=== PATIENT | female | born 1990 | race Two or more races ===

== ENCOUNTER 2023-12-21 05:09 | Inpatient (IN) | payer OTHER ==
[~2023-12-21] VITALS: Ht 165.1 cm; Wt 65.8 kg
[~2023-12-21 05:09] MED LIST: PRENATAL TABLE1 EAC1 PO
[2023-12-21] MEDS ORDERED: PROMETHAZINE HCL 50 MG/ML AMPUL IM STA (05:34)
[2023-12-21] MEDS ORDERED: FAMOTIDINE/PF 20 MG/2 ML VIAL IV PUSH STA (05:34)
[2023-12-21] MEDS ORDERED: 0.9 % SODIUM CHLORIDE 1,000 ML IV STA (05:39)
[2023-12-21 06:24] LABS: HEMATOCRIT 38.9 % (36.0-45.00); HEMOGLOBIN 13.4 g/dL (12.0-15.00); MEAN CELL VOLUME 87.3 fL (80.00-100.00); MEAN CORPUSCULAR HGB CONC 34.3 g/dl (32.0-36.0); PLATELET COUNT 187 K/uL (150-450); RED BLOOD COUNT 4.46 M/uL (4.00-6.00); RED CELL DISTRIBUTION WIDTH 13.5 % (11.5-14.5)
[2023-12-21 06:33] LABS: PH,URINE 5.5 (5.0-8.0); URINE APPEARANCE Clear; URINE BILIRRUBIN Negative (NEGATIVE); URINE BLOOD Negative; URINE COLOR Yellow; URINE GLUCOSE Negative (NEGATIVE); URINE LEUKOCYTE Negative; URINE NITRATE Negative; URINE PROTEIN Trace (NEGATIVE)
[2023-12-21 06:37] LABS: URINE BACTERIA 22.6 uL (0.0-1933); URINE EPITHELIAL CELLS 5.2 uL (0.0-38.8); URINE WBC 8.6 uL (0.0-23.2)
[2023-12-21 07:01] LABS: ALBUMIN 4.2 gm/dL (3.4-5.0); ALKALINE PHOSPHATASE 93 U/L (50-136); ALT/SGPT 16 U/L (12-78); AMYLASE 104 U/L (25-115); ANION GAP 6 (10.0-20.0); AST/SGOT 13 U/L (15-37); BILIRUBIN TOTAL 0.44 mg/dL (0.3-1.2); BLOOD UREA NITROGEN 16 mg/dL (7-18); BUN CREA RATIO 26 (7.0-25.0); CALCIUM 9.5 mg/dL (8.5-10.1); CARBON DIOXIDE 29 mEq/L (21-32); CHLORIDE 107 mmol/L (98-107); CREATININE SERUM 0.62 mg/dL (0.55-1.02); GFR 112.27; GLOBULINA 4.1 G/DL (2.4-3.5); GLUCOSE FASTING 88 mg/dL (65-100); LIPASE 53 U/L (13-75); OSMOLALITY SERUM 278 MOSM/KG (275-295); POTASSIUM 3.29 mEq/L (3.5-5.1); SODIUM 139 mmol/L (136-145); TOTAL PROTEIN 8.3 gm/dL (6.4-8.2)
[2023-12-21 07:03] LABS: HCG QUANTITATIVE < 1 mUI/mL (1-3)
[2023-12-21] MEDS ORDERED: KETOROLAC TROMETHAMINE 30 MG VIAL IV ONE (09:00)
[2023-12-21] MEDS ORDERED: ONDANSETRON HCL 2 MG/ML VIAL IV ONE (09:00)
[2023-12-21] MEDS ORDERED: PIPERACILLIN/TAZOBACTAM SODIUM 3.375 GM in DEXTROSE 5 % IN WATER 100 ML IV SCH (12:28)
[2023-12-21] MEDS ORDERED: FAMOTIDINE/PF 20 MG in 0.9 % SODIUM CHLORIDE 100 ML IV SCH (12:28)
[2023-12-21] MEDS ORDERED: KETOROLAC TROMETHAMINE 30 MG VIAL IU PRN (12:30)
[2023-12-21] MEDS ORDERED: KETOROLAC TROMETHAMINE 30 MG VIAL IV PRN (19:30)
[2023-12-22] MEDS ORDERED: PIPERACILLIN/TAZOBACTAM SODIUM 3.375 GM VIAL IV ONE (07:44)
[2023-12-22] MEDS ORDERED: FAMOTIDINE/PF 20 MG/2 ML VIAL ONE (07:44)
[2023-12-22] MEDS ORDERED: PRENATAL + DHA1 EAC1 PO (14:47)
[2023-12-23] MEDS ORDERED: MORPHINE SULFATE 4 MG/ML CARTRIDGE IV SCH (17:00)
== END 2023-12-25 11:11 | disposition home or self-care (01) | DRG 419 ==
LOC: ER 05:09 → SURG 13:00
PROVIDERS: General Practice; Surgery; ADMIT Internal Medicine; ATTEND Internal Medicine
PROC: 0FT44ZZ Resection of Gallbladder, Percutaneous Endoscopic Approach (ICD-10-PCS; principal; 2023-12-23 15:00)
DX: K80.20 Calculus of gallbladder without cholecystitis without obstruction (principal); R11.11 Vomiting without nausea; R10.13 Epigastric pain

== ENCOUNTER 2024-12-07 08:36 | Outpatient (CLI) | payer OTHER ==
[~2024-12-07 08:36] MED LIST changes: +PRENATAL + DHA1 EAC1 PO
== END 2024-12-07 08:37 | disposition home or self-care (01) ==
LOC: PRENATAL 08:36
PROVIDERS: ATTEND Obstetrics & Gynecology Maternal & Fetal Medicine
DX: O44.00 Complete placenta previa NOS or without hemorrhage, unspecified trimester (principal); O34.219 Maternal care for unspecified type scar from previous cesarean delivery; Z3A.22 22 weeks gestation of pregnancy

== ENCOUNTER 2025-01-18 15:21 | Outpatient (CLI) | payer OTHER | END 2025-01-18 15:22 | disposition home or self-care (01) | LOC: PRENATAL 15:21 | PROVIDERS: ATTEND Obstetrics & Gynecology Maternal & Fetal Medicine | DX: O26.849 Uterine size-date discrepancy, unspecified trimester (principal); O36.8199 Decreased fetal movements, unspecified trimester, other fetus; O34.219 Maternal care for unspecified type scar from previous cesarean delivery; Z3A.28 28 weeks gestation of pregnancy ==

== ENCOUNTER 2025-03-01 15:16 | Outpatient (CLI) | payer OTHER | END 2025-03-01 15:19 | disposition home or self-care (01) | LOC: PRENATAL 15:16 | PROVIDERS: ATTEND Obstetrics & Gynecology Maternal & Fetal Medicine | DX: O26.849 Uterine size-date discrepancy, unspecified trimester (principal); O36.8199 Decreased fetal movements, unspecified trimester, other fetus; O34.219 Maternal care for unspecified type scar from previous cesarean delivery; Z3A.35 35 weeks gestation of pregnancy ==

== ENCOUNTER 2025-03-22 13:10 | Emergency (ER) | payer OTHER ==
[~2025-03-22] VITALS: Ht 167.6 cm; Wt 68.0 kg
[2025-03-22 16:15] LABS: INFLUENZA A AG NEGATIVE (NEGATIVE)
[2025-03-22 16:17] LABS: COVID-19 AG NEGATIVE (NEGATIVE)
[2025-03-22 16:38] VITALS: BP 99/68; O2SAT 98
== END 2025-03-22 16:39 | disposition home or self-care (01) ==
LOC: ER 13:30
PROVIDERS: General Practice
DX: B34.9 Viral infection, unspecified (principal); Z20.822 Contact with and (suspected) exposure to COVID-19

== ENCOUNTER 2025-04-03 12:39 | Inpatient (IN) | payer OTHER ==
[~2025-04-03] VITALS: Ht 167.6 cm; Wt 3.2 kg
[2025-04-03 12:17] VITALS: BP 111/70
[2025-04-03 13:13] LABS: BASO % 0.3 % (0.1-1.2); EOS # 0.08 (0.04-0.54); EOS % 1.1 % (0.7-7.0); HEMATOCRIT 31.1 % (34.1-44.9); HEMOGLOBIN 10.3 g/dL (11.2-15.7); LYMPH % 15.6 % (19.3-53.1); MEAN CORPUSCULAR HEMOGLOBIN 28.9 pg (25.6-32.2); MONO # 0.74 (0.24-0.82); MONO % 10.5 % (4.7-12.5); NEUT # 5.07 (1.56-6.13); NEUT % 71.9 % (34.0-71.1); PLATELET COUNT 166 K/uL (163-369); RED BLOOD COUNT 3.56 M/uL (3.93-5.22)
[2025-04-03 13:16] LABS: PH,URINE 5.5 (5.0-8.0); URINE APPEARANCE Clear; URINE BILIRRUBIN Negative (NEGATIVE); URINE BLOOD Negative; URINE COLOR Dark Yellow; URINE KETONE Trace (NEGATIVE); URINE LEUKOCYTE Negative; URINE NITRATE Negative; URINE PROTEIN Trace (NEGATIVE)
[2025-04-03 13:19] LABS: URINE BACTERIA 479.7 uL (0.0-1933); URINE EPITHELIAL CELLS 18.8 uL (0.0-38.8); URINE RBC 3.5 uL (0.0-20.8); URINE WBC 8.8 uL (0.0-23.2)
[2025-04-03 13:20] LABS: URINE CAST 0.88 uL (0.0-1.40); URINE GLUCOSE >=1000 MG/DL (NEGATIVE)
[2025-04-03 15:10] VITALS: BP 101/61
[2025-04-03 16:16] LABS: ALBUMIN 2.5 gm/dL (3.4-5.0); BILIRUBIN TOTAL 0.45 mg/dL (0.3-1.2); CALCIUM 8.8 mg/dL (8.5-10.1); CREATININE SERUM 0.67 mg/dL (0.55-1.02); GLOBULINA 3.8 G/DL (2.4-3.5); POTASSIUM 3.42 mEq/L (3.5-5.1); TOTAL PROTEIN 6.3 gm/dL (6.4-8.2)
[2025-04-03 20:00] VITALS: BP 95/61
[2025-04-03] MEDS ORDERED: RINGERS SOLUTION,LACTATED 1,000 ML IV SCH (22:45)
[2025-04-03 23:23] VITALS: BP 99/66
[2025-04-04 03:51] VITALS: BP 96/60
[2025-04-04 06:37] VITALS: BP 92/59; O2SAT 99
[2025-04-04 11:58] VITALS: BP 94/65
[2025-04-04] MEDS ORDERED: OXYTOCIN 10 UNITS/ML VIAL ONE (14:30)
[2025-04-04] MEDS ORDERED: MORPHINE SULFATE 4 MG/ML CARTRIDGE IV PRN (17:30)
[2025-04-04] MEDS ORDERED: MORPHINE SULFATE 4 MG/ML VIAL IV ONE ×2 (18:10→20:25)
[2025-04-04 21:06] VITALS: BP 95/75
[2025-04-04 21:51] LABS: BASO % 0.3 % (0.1-1.2); EOS # 0.01 (0.04-0.54); EOS % 0.1 % (0.7-7.0); HEMATOCRIT 32.5 % (34.1-44.9); HEMOGLOBIN 10.6 g/dL (11.2-15.7); LYMPH # 0.87 (1.18-3.74); LYMPH % 7.4 % (19.3-53.1); MEAN CORPUSCULAR HEMOGLOBIN 28.4 pg (25.6-32.2); MONO # 1.06 (0.24-0.82); MONO % 9.1 % (4.7-12.5); NEUT % 82.8 % (34.0-71.1); PLATELET COUNT 153 K/uL (163-369); RED BLOOD COUNT 3.73 M/uL (3.93-5.22); RED CELL DISTRIBUTION WIDTH 12.9 % (11.6-14.4)
[2025-04-05] VITALS (7 sets, daily range): BP systolic 92–113; BP diastolic 60–70
[2025-04-05] MEDS ORDERED: OxyCODONE HCL 5 MG TABLET (ROXICODONE) PO PRN (08:00)
[2025-04-06] VITALS: BP 105/68
[2025-04-06 08:33] VITALS: BP 103/61
[2025-04-06 17:20] VITALS: BP 103/65
[2025-04-07 01:00] VITALS: BP 133/84
[2025-04-07 08:00] VITALS: BP 101/68
[2025-04-07] MEDS ORDERED: OxyCODONE HCL 5 MG TABLET (ROXICODONE) PO PRN (11:15)
== END 2025-04-07 13:48 | disposition home or self-care (01) | DRG 788 ==
LOC: OBS/DEL 12:39 → LDR 14:40 → OBS/DEL 14:40 → O/R 04-04 16:19 → OB/GYN 04-04 18:16
PROVIDERS: ADMIT Obstetrics & Gynecology Obstetrics; ATTEND Obstetrics & Gynecology Obstetrics
PROC: 4A1HXCZ Monitoring of Products of Conception, Cardiac Rate, External Approach (ICD-10-PCS; 2025-04-03)
PROC: 10D00Z1 Extraction of Products of Conception, Low, Open Approach (ICD-10-PCS; principal; 2025-04-04 15:15)
DX: O82 Encounter for cesarean delivery without indication (principal); Z3A.38 38 weeks gestation of pregnancy; Z37.0 Single live birth